=== PATIENT | female | born 1980 | race Caucasian/White ===

== ENCOUNTER 2022-12-30 16:34 | Emergency (ER) | payer OTHER, MEDICAID, SELFPAY ==
[2022-12-30 16:35] VITALS: BP 216/126; PULSE 114; RESP 18; TEMP 36.7; O2SAT 98; BMI 50.1
--- NOTE | 2022-12-30 16:38 | EX.ED.DYSGE1 ---
HPI History of Present Illness Chief Complaint: Abd Pain Narrative Narrative: 42-year-old female here with abdominal pain. Notes one hour ago pain started in lower abdomen. Notes pain is sharp. Lower, midline. No vaginal bleeding or discharge. She is not sexually active. No urinary complaints. No diarrhea or constipation. Notes she has had 2 ovarian cyst ruptures in the past thinks may have 1 today. Nausea but no vomiting. Notes she has not been taking her home blood pressure medicine including amlodipine and hydrochlorothiazide because she cannot swallow pills. Patient denies any tenderness at this time. PFSH PFS Medical History (Updated 12/30/22 @ 20:[address] Lamine Holbrook, DO) Atrial ectopic tachycardia GERD (gastroesophageal reflux disease) HTN (hypertension) Ovarian cyst Home Medications carvedilol 6.25 mg tablet 6.25 mg PO BID 12/30/22 [History Last Taken Unknown] hydrochlorothiazide 12.5 mg tablet 12.5 mg PO DAILY 12/30/22 [History Last Taken Unknown] omeprazole 20 mg capsule,delayed release 20 mg PO DAILY 12/30/22 [History Last Taken Unknown] Allergy/AdvReac Type Severity Reaction Status Date / Time morphine Allergy Itching Verified 12/30/22 16:35 Surgical History (Updated 12/30/22 @ 16:40 by Geni Sierra) H/O cardiac radiofrequency ablation H/O: Hx of cholecystectomy Social History Smoking Status: Never smoker ROS ROS ED ROS Narrative Constitutional: Denies fever HEENT: Denies sore throat Neck: Denies neck pain Cardiovascular: Denies chest pain, syncope Respiratory: Denies shortness of breath GI: Endorses abdominal pain : Denies changes in urinary habits Musculoskeletal: Denies muscle or joint pain Neurologic: Denies numbness weakness or loss of sensation Skin denies rash EXAM Physical Exam Narrative Exam Narrative: Nursing triage notes reviewed, Vital signs reviewed Constitutional: please see mdm HENT: MMM Eyes: Pupils equal round and reactive to light, Extraocular muscles intact Neck: No stridor, no JVD, full neck ROM Lungs: Clear to auscultation, No wheezing or rales. No increased work of breathing, no conversational dyspnea, no accessory muscle use, no nasal flaring. No respiratory distress noted Heart: Regular rate and rhythm, No murmurs, No rubs and No gallops, 2+ distal pulses (radial, femoral, posterior tibial) in all extremities Abdomen: Soft, there is no objective tenderness, there is no rigidity, rebound or guarding, no obvious peritoneal signs, no palpable pulsatile abdominal masses, no auscultated abdominal bruit : No CVAT Extremities: No edema Neuro: No focal neurological deficits, cranial nerves II through XII intact, 5/5 strength in all extremities. Intact sensation to light touch in all extremities, 2+ reflexes bilateral patella dens. Normal gait. No ataxia. Skin: No rash or lesions noted Const Vital Signs: 12/30/22 16:35 12/30/22 19:18 Temperature 98.1 F Temperature Source Oral Pulse Rate 114 H Respiratory Rate 18 Blood Pressure 216/126 H 201/103 H Blood Pressure Mean 156 135 Pulse Ox 98 Oxygen Delivery Method Room Air MDM MDM MDM Narrative Medical decision making narrative: Chief Complaint: Abdominal pain External records reviewed: No recent advanced imaging of the abdomen or pelvis noted in the chart MDM: I considered the following differential diagnosis: Acute surgical process the abdomen pelvis such as obstruction or perforation, pancreatitis, gastritis, hepatobiliary pathology, pathology such as ovarian torsion, ectopic , pyelonephritis, UTI I obtained a broad lab and imaging work-up to further elucidate etiology patient complaints. The patient abdominal exam did not have any pulsatile abdominal masses, there are no pulse deficits, there is no neurodeficits to suggest AAA or other aortic pathology despite the patient elevated blood pressure I gave the patient nausea medicine, pain medicine. I monitor patient for outpatient very closely. Initial blood pressure did require emergent treatment. After pain medicine blood pressure was slightly improved. This point I did give the patient her oral home blood pressure medicine. Blood pressure continued to downtrend. Labs without evidence of leukocytosis suggestive make inflammation, no anemia, no evidence hepatobiliary traction, pancreatitis, no evidence of anion gap, no evidence of acute kidney injury. Patient's urine is consistent with urine infection this may be causing the patient's symptoms we will treat with oral Keflex. Patient was counseled for a long time about elevated blood pressure and need for compliance with blood pressure regiment. Patient agreed to start blood pressure regiment to begin eating a healthy diet, exercising and losing weight. She agreed to follow with her primary care physician at next billable appointment. She further agreed to return to the ED if symptoms change or worsen. Factors affecting care: HTN, atrial ectopic tachycardia Social determinants of health: None History obtained from others: none Shared decision making: I will have a discussion with the patient and or visitors regarding risk/benefits of further testing or admission. They will be made aware of of the risk/benefits inherent in this decision they will be given the opportunity to voice understanding. Consults: none Lab Data Attestation: I reviewed the patient's lab results. Lab results narrative: CBC without leukocytosis, severe anemia, no thrombocytopenia. LFTs show no evidence of hepatobiliary pathology. Lipase is wnl indicating no pancreatic inflammation. BMP without evidence of significant electrolyte abnormalities, no anion gap, no acute kidney injury. UA with evidence of infection Transvaginal ultrasound shows no evidence of ovarian cyst, ovarian cyst rupture Labs: Laboratory Results - last 24 hr 12/30/22 12/30/22 12/30/22 17:10 17:10 17:10 WBC 7.9 RBC 4.81 Hgb 12.7 Hct 39.9 MCV 83.0 MCH 26.4 L MCHC 31.8 L RDW Std Deviation 41.1 RDW Coeff of Scott 13.6 Plt Count 263 MPV 9.6 Immature Gran % (Auto) 0.400 Neut % (Auto) 69.2 Lymph % (Auto) 21.0 [place]linger % (Auto) 6.5 Eos % (Auto) 2.5 Baso % (Auto) 0.4 Absolute Neuts (auto) 5.5 Absolute Lymphs (auto) 1.66 Nucleated RBC % 0 Sodium Potassium Chloride Carbon Dioxide Anion Gap BUN Creatinine Estim Creat Clear Calc Est GFR (MDRD) Af Amer Est GFR (MDRD) Non-Af BUN/Creatinine Ratio Glucose Calcium Total Bilirubin 1.10 H Direct Bilirubin 0.23 AST 35 ALT 43 Alkaline Phosphatase 73 Total Protein 7.3 Albumin 3.4 Globulin 3.9 Lipase 45 Urine Color Urine Clarity Urine pH Ur Specific [place] Urine Protein Urine Glucose (UA) Urine Ketones Urine Occult Blood Urine Nitrite Urine Bilirubin Urine Urobilinogen Ur Leukocyte Esterase Urine RBC Urine WBC Ur Squamous Epith Cells Urine Bacteria Urine Mucus Urine Test 12/30/22 12/30/22 17:10 18:15 WBC RBC Hgb Hct MCV MCH MCHC RDW Std Deviation RDW Coeff of Scott Plt Count MPV Immature Gran % (Auto) Neut % (Auto) Lymph % (Auto) [place] % (Auto) Eos % (Auto) Baso % (Auto) Absolute Neuts (auto) Absolute Lymphs (auto) Nucleated RBC % Sodium 140 Potassium 3.5 Chloride 105 Carbon Dioxide 25.0 Anion Gap 10 BUN 13 Creatinine 1.18 H Estim Creat Clear Calc 55.32 Est GFR (MDRD) Af Amer 64 Est GFR (MDRD) Non-Af 53 L BUN/Creatinine Ratio 11.0 Glucose 126 H Calcium 9.4 Total Bilirubin Direct Bilirubin AST ALT Alkaline Phosphatase Total Protein Albumin Globulin Lipase Urine Color Yellow Urine Clarity Sl. Cloudy Urine pH 6.5 Ur Specific [place] 1.010 Urine Protein 30 H Urine Glucose (UA) Normal Urine Ketones 5 H Urine Occult Blood 10 H Urine Nitrite Positive H Urine Bilirubin Negative Urine Urobilinogen Normal Ur Leukocyte Esterase 500 H Urine RBC 0 SEEN Urine WBC 5-10 SEEN Ur Squamous Epith Cells 0-5 SEEN Urine Bacteria 2+ Urine Mucus 0 SEEN Urine Test Negative Radiography Diagnostic Testing: Clinical Impression(s) from Imaging Studies Transvaginal US 12/30/22 17:07 IMPRESSION: 1. Minimal fluid in the lower uterine and cervical canal. Uterus is otherwise unremarkable. 2. Minimal free fluid in the pelvis. This is soft to be physiologic. 3. Normal ovaries without evidence of cyst formation. Electronically Signed: Nathaniel Cruz DO at 18:20 EDT Reading Location ID and State: [address] [place] [address] Tel [phone], Service support , Discharge Plan Triage Chief Complaint: Abd Pain ED Provider: Lamine Holbrook Dx/Rx/DC Orders Clinical Impression: UTI (urinary tract infection), Hypertension Prescriptions: No Action carvedilol 6.25 mg tablet 6.25 mg PO BID Label Comments: take 1 tablet by mouth twice a day with food omeprazole 20 mg capsule,delayed release(DR/EC) 20 mg PO DAILY Label Comments: take 1 capsule by mouth once daily BEFORE A MEAL hydrochlorothiazide 12.5 mg tablet 12.5 mg PO DAILY Label Comments: take 1 tablet by mouth once daily Primary Care Provider: Gopal Vizcaino Referrals: Gopal Vizcaino MD [Primary Care Provider] - Activity Restrictions/Additional Instructions: Thank you for trusting us with your care today! Please take Tylenol (2 pills, 650 mg), ibuprofen (2 pills, 400 mg) every 6 hours as needed for pain and fever control. Please take antibiotics until course complete. Please return if cannot tell antibiotic mouth. Please follow with your primary care physician and begin taking your home blood pressure regiment in order to control your blood pressures more closely to prevent increased risk of stroke, heart attack, renal failure, ocular issues etc. Please begin exercising daily approximate 30 minutes of light exercise for example walking. Please begin eating a healthy diet of fresh fruits and vegetables. Please avoid packaged or processed foods as these contain lots of sodium which increase blood pressure. Please return to the emergency department if your symptoms change or worsen. Please follow with your primary care physician for further outpatient evaluation and management. Disposition Disposition: Home, Self Care
--- NOTE | 2022-12-30 17:07 | US_ITS ---
STUDY: ULTRASOUND OF THE FEMALE PELVIS - COMPLETE REASON FOR EXAM: Female, 42 years old. Lower abdominal pain. Rule out ovarian cyst rupture. LMP: December 08 2022 TECHNIQUE: Transabdominal and Transvaginal TECHNICAL QUALITY: Adequate. COMPARISON: None. FINDINGS: The uterus is anteverted and is in a midline position. The uterus measures 11.3 x 5.3 x 5.1 cm. There is a Nabothian cyst of the cervix. Fluid is seen in the lower uterine and cervical canal. The endometrium measures 9.2 mm in thickness, and is hyperechoic. There is no demonstrated endometrial mass. There is no demonstrated myometrial mass. I.U.D. - The patient does not have an I.U.D. The right ovary is visualized. The right ovary measures 2.1 x 2.0 x 1.6 cm. There are multiple follicles of the right ovary without a dominant cyst. There is no visualized right adnexal mass or complex lesion. There is normal arterial and normal venous vascularity. The left ovary is visualized. The left ovary measures 3.5 x 2.4 x 1.7 cm. There are multiple follicles of the left ovary without a dominant cyst. There is no visualized left adnexal mass or complex lesion. There is normal arterial and normal venous vascularity. There is minimal fluid in the cul-de-sac. The urinary bladder poorly distended but otherwise grossly normal. Ureteral jets are visualized. Polycystic ovary disease: No. US/Transvaginal Non- IMPRESSION: 1. Minimal fluid in the lower uterine and cervical canal. Uterus is otherwise unremarkable. 2. Minimal free fluid in the pelvis. This is soft to be physiologic. 3. Normal ovaries without evidence of cyst formation. Electronically Signed: Nathaniel Cruz DO at 18:20 EDT Reading Location ID and State: [address] [place] [address] Tel [phone], Service support ,
[2022-12-30] MEDS: Ondansetron 4 MG/2 ML Vial IV (17:21)
[2022-12-30] MEDS: DiphenhydrAMINE 50 MG/ML Syringe 25 MG IV (17:21)
[2022-12-30] MEDS: 0.9% Normal Saline 1,000 ML 1000 ML IV (17:21)
[2022-12-30] MEDS: Morphine 4 MG/ML Syringe IM (17:21)
[2022-12-30 17:27] LABS: Absolute Lymphocyte Count 1.66 X10^3/uL (0.83-4.51); Absolute Neutrophil Count 5.5 X10^3/uL (2.0-7.7); Basophil# 0.03 X10^3/uL; Basophil% 0.4 % (0-1); Eosinophils% 2.5 % (0-5); Hematocrit 39.9 % (37-47); Hemoglobin 12.7 g/dL (12.0-15.0); Lymphocyte # 1.66 X10^3/ul (0.83-4.51); Mean Corp Hgb Conc 31.8 g/dL (32-36); Mean Corpuscular Hgb 26.4 pg (27.0-32.0); Mean Platelet Vol. 9.6 fl (6.2-12.0); Monocyte# 0.51 X10^3/uL; Monocyte% 6.5 % (0-10); NRBC Flagged by Analyzer 0 % (0-5); Neutrophil # 5.46 X10^3/uL (2.7-7.7); Neutrophil % 69.2 % (47-70); Platelet Count 263 K/mm3 (150-450); RBC Distribution Width CV 13.6 % (11.6-14.6); RBC Distribution Width SD 41.1 fl (35.1-43.9); Red Blood Count 4.81 M/mm3 (4.2-5.4); White Blood Count 7.9 K/mm3 (4.4-11.0)
[2022-12-30 17:51] LABS: Lipase 45 U/L (13-75)
[2022-12-30 17:57] LABS: AST(SGOT) 35 U/L (15-37); Alanine Aminotransfer ALT/SGPT 43 U/L (13-56); Albumin, Serum 3.4 g/dL (3.2-5.0); Alkaline Phosphatase 73 U/L (45-117); Bilirubin, Direct 0.23 mg/dL (0.00-0.30); Globulin 3.9 g/dL (2.2-4.2); Protein, Total 7.3 g/dL (6.4-8.2)
[2022-12-30 18:24] LABS: Mucous, Urine 0 SEEN /hpf (<or=2+); Red Blood Cells-Urine 0 SEEN /hpf (0-5)
[2022-12-30 18:46] LABS: Color, Urine Yellow (Yellow); Glucose, Dipstick Normal (Normal); Ketone-Dipstick 5 mg/dl (Negative); Leukocyte Esterase-Dipstick 500 /ul (Negative); Nitrite-Dipstick Positive (Negative); Occult Blood-Urine 10 /ul (Negative); Protein-Dipstick 30 mg/dl (Negative); Urine Bilirubin Dipstick Negative (Negative); Urine Clarity Sl. Cloudy (Clear); Urine Urobilinogen Normal (Normal); Urine pH 6.5 (5.0 - 8.0)
[2022-12-30 18:55] LABS: Bacteria 2+ /hpf (None Seen); Squamous Epithelial Cells - UA 0-5 SEEN /hpf (5-10); White Blood Cells 5-10 SEEN /hpf (0-5)
[2022-12-30 18:56] LABS: Anion Gap 10 (5-15); BUN 13 mg/dL (7-18); Calcium,Total 9.4 mg/dL (8.5-10.1); Chloride 105 mmol/L (98-107); Creatinine, Serum 1.18 mg/dL (0.55-1.02); EST Glomerular Filtration Rate 53 mL/min (>60); Est Glom Filt Rate - Afr Amer 64 mL/min (>60); Estimated Creatinine Clearance 55.32 ml/min; Glucose 126 mg/dL (74-106); Potassium 3.5 mmol/L (3.5-5.1); Sodium Level 140 mmol/L (136-145)
[2022-12-30 18:56] LABS: Internal QC Validated? YES +Cl - CLEAR BKGD; Pregnancy, Urine Negative Negative
[2022-12-30 19:18] VITALS: BP 201/103
[2022-12-30] MEDS: Cephalexin 250 MG Capsule 500 MG PO (19:18)
[2022-12-30] MEDS: amLODIPine 5 MG Tablet PO (19:33)
[2022-12-30] MEDS: hydroCHLOROthiazide 12.5mg 12.5 MG PO (19:51)
[2022-12-30 20:26] VITALS: BP 201/113; PULSE 97; RESP 20; O2SAT 100
[2022-12-30 20:30] VITALS: BP 204/113
== END 2022-12-30 21:02 | disposition home or self-care (01) ==
PROVIDERS: Emergency Provider Emergency Medicine; PCP Internal Medicine; Visit Provider Emergency Medicine
DX: N39.0 Urinary tract infection, site not specified (principal); I10 Essential (primary) hypertension; K21.9 Gastro-esophageal reflux disease without esophagitis; Z79.899 Other long term (current) drug therapy
CPT/HCPCS: 76830; 80048; 80076; 81001; 81025; 83690; 85025; 87077; 87086; 87088; 87186; 96361; 96372; 96374; 96375; 99284; J7030; A4216; J2405